=== PATIENT | male | born 1955 | race Caucasian/White ===

== ENCOUNTER 2020-05-17 18:42 | Emergency (ER) | payer OTHER ==
[2020-05-17 19:16] VITALS: BP 135/85; PULSE 76; TEMP 97.6; BMI 27.5
== END 2020-05-17 19:56 | disposition home or self-care (01) ==
LOC: FER 18:42
DX: M67.843 Other specified disorders of tendon, right hand (principal)
CPT/HCPCS: 99281-25

== ENCOUNTER 2022-07-13 09:12 | Emergency (ER) | payer OTHER ==
[2022-07-13 09:31] VITALS: BP 150/88; PULSE 80; RESP 18; TEMP 97.8; BMI 27.1
[2022-07-13 10:27] LABS: HEMATOCRIT 47.5 % (35.4-49); HEMOGLOBIN 15.7 G/dL (11.7-16.9); MCH 30.6 pg (25.7-33.7); MCHC 33.1 g/dl (32.0-35.9); MEAN CELL VOLUME 92.5 fl (80-96); MEAN PLT VOLUME 10.1 fl (7.5-11.1); PLATELET COUNT 154.5 10^3/uL (134-434); RBC 5.13 10^6/uL (4.00-5.60); RDW 14.6 % (11.9-15.9); WHITE BLOOD COUNT 8.3 10^3/uL (4.0-10.8)
[2022-07-13 10:34] LABS: ALBUMIN 3.8 g/dl (3.4-5.0); BILIRUBIN,TOTAL 0.8 mg/dl (0.2-1); TOT PROT 6.5 g/dl (6.4-8.2)
== END 2022-07-13 11:40 | disposition home or self-care (01) ==
LOC: FER 09:12
DX: R07.89 Other chest pain (principal)
CPT/HCPCS: 36415; 71045-TC-FY; 80053; 84484; 85027; 93005; 99285-25